=== PATIENT | male | born 1970 | race Caucasian/White ===

== ENCOUNTER 2023-05-28 17:02 | Emergency (ER) | payer OTHER, SELFPAY ==
[2023-05-28 17:09] VITALS: BP 162/90; PULSE 67; RESP 16; TEMP 36.4; O2SAT 100; BMI 28.1
--- NOTE | 2023-05-28 17:20 | XR_ITS ---
Patient: MATTEO PERRY Facility:?[facility] Patient ID:?[id number] Site Patient ID:?[id number] Site :?[id number] Study:?XRay-Hip Left -05/28/2023 5:36:19 PM Ordering Physician:?DR. ALVAREZ Final Report: Indication: Fall. Technique: Pelvis and left hip 3 views. Comparison: None. Findings: Bones: Alignment is normal. No fractures or bone lesions. Joint spaces: Joint spaces are preserved. No degenerative changes. Soft tissues: Unremarkable. Impression: No findings to explain pain. Dictated by Nicholas Rendon MD @ 05/28/2023 6:00:36 PM Signed by:?Nicholas Rendon MD @05/28/2023 6:00:36 PM (Electronic Signature)
--- NOTE | 2023-05-28 17:44 | ED_ITS ---
HPI - General Adult General Chief complaint: Extremity Pain/Injury, Lower Stated complaint: Fell, cannot walk on left leg Time Seen by Provider: 05/28/23 17:04 Source: patient Mode of arrival: other (Crutches) Limitations: no limitations History of Present Illness HPI narrative: 52-year-old male coming in today complaining of left-sided hip pain. Patient states that he was on a mounting block to get on a horse when the horse moved away patient fell onto his left hip to the ground. Did not hit his head or lose consciousness. Patient has been using crutches since this occurred as he is having a hard time walking. He states the pain is located on the lateral he left hip radiates a little bit down into the leg and radiates medially. Nothing seems to make it better or worse. He denies any back pain. No loss of bowel or bladder function since this occurred. Related Data Home Medications Medication Instructions Recorded Confirmed aspirin 81 mg tablet,delayed 81 mg PO QDAY 03/04/22 03/04/22 release (Adult Low Dose Aspirin) atorvastatin 40 mg tablet 40 mg PO .Bedtime 03/04/22 03/04/22 fluoxetine 40 mg capsule 40 mg PO DAILY 03/04/22 03/04/22 lisinopril 10 mg tablet 10 mg PO DAILY 03/04/22 05/28/23 ticagrelor 90 mg tablet 90 mg PO BID 03/04/22 03/04/22 aspirin 81 mg chewable tablet 1 tab PO DAILY 05/28/23 05/28/23 rosuvastatin 40 mg tablet 40 mg PO DAILY 05/28/23 05/28/23 Allergies Allergy/AdvReac Type Severity Reaction Status Date / Time No Known Allergies Allergy Unknown Verified 03/03/22 13:56 Review of Systems Status of ROS: Reports: 10 or more systems reviewed and unremarkable except as noted in History and below [facility] Social History Smoking Status: Former smoker Exam Narrative: Exam Narrative: Well-nourished well-developed patient in no acute distress. Alert and oriented x3. Answers questions appropriately. Mood and affect are appropriate. Thoughts are goal oriented and rational. No tangential or magical thinking noted. Patient speaks in full sentences without needing to catch his breath. GCS is 15. He is breathing and speaking without difficulty. There is no obvious bleeding. HEENT: Normocephalic atraumatic. Pupils are equally round reactive to light. Extraocular muscles are intact. Conjunctivae are moist without any icterus noted. Moist mucous membranes. No trauma to the inside of the mouth. Cardiovascular: Heart is regular rate and rhythm S1 and S2 are present without any murmurs. Lungs: Clear to auscultation bilaterally no wheezes rhonchi or rales are appreciated. Patient takes deep breaths without any discomfort. There is no discomfort to palpation over the chest wall. Abdomen: Soft and nontender nondistended with normal bowel sounds. No guarding or rebound. No masses or organomegaly appreciated. Extremities: Bilateral lower extremities are without edema. Normal DP and PT pulses. There is no bruising or abrasions noted of the extremity. He has gen eralized discomfort with palpation anywhere over the left hip but there is no bony tenderness with palpation of the femur or the greater trochanter. He has no bony tenderness with manipulation of the pelvis. He can lift the leg off the bed. The leg is not shortened or internally rotated. Skin: Well perfused without any obvious rashes. Back: Normal appearance. No tenderness to palpation of the cervical, thoracic or lumbar spine. He has full range of motion at the neck with flexion, extension sideways bending and rotation without pain. Const: Vital Signs, click to edit/add: Vital Signs - 24 hr 05/28/23 17:09 Temperature 97.6 F Pulse Rate [Pulse Oximeter] 67 Respiratory Rate 16 Blood Pressure [Ri ght Upper Arm] 162/90 H Pulse Oximetry 100 Oxygen Delivery Me thod Room Air Course Course ED Course: X-rays of the hip and pelvis were done. X-rays, read by me, were unremarkable. Vital Signs Vital signs: Initial Vital Signs Temperature 97.6 F 05/28/23 17:09 Temperature Source Temporal Artery Scan 05/28/23 17:09 Pulse Rate 67 05/28/23 17:09 Respiratory Rate 16 05/28/23 17:09 Blood Pressure 162/90 H 05/28/23 17:09 Blood Pressure Mean 114 H 05/28/23 17:09 Blood Pressure Position Standing 05/28/23 17:09 Pulse Oximetry 100 05/28/23 17:09 Oxygen Delivery Method Room Air 05/28/23 17:09 Vital Signs Temperature 97.6 F 05/28/23 17:09 Pulse Rate 67 05/28/23 17:09 Respiratory Rate 16 05/28/23 17:09 Blood Pressure 162/90 H 05/28/23 17:09 Pulse Oximetry 100 05/28/23 17:09 Oxygen Delivery Method Room Air 05/28/23 17:09 Temperature 97.6 F 05/28/23 17:09 Pulse Rate 67 05/28/23 17:09 Respiratory Rate 16 05/28/23 17:09 Blood Pressure 162/90 H 05/28/23 17:09 Pulse Oximetry 100 05/28/23 17:09 Oxygen Delivery Method Room Air 05/28/23 17:09 Medical Decision Making Imaging Data XR hip/pelvis: Attestation: I have reviewed the pertinent imaging results. Radiologist's impression: Pelvis and left hip 3 views. Comparison: None. Findings: Bones: Alignment is normal. No fractures or bone lesions. Joint spaces: Joint spaces are preserved. No degenerative changes. Soft tissues: Unremarkable. Impression: No findings to explain pain. Discharge Plan Discharge Clinical Impression: Contusion of hip, left Patient Disposition: Home, Self-Care Condition: Stable Additional Instructions: Okay to ice sore areas today and in the next few days. Do not ice for more than 20 minutes at a time do not apply ice directly to skin. Okay to use ibuprofen or Tylenol as needed for discomfort. If you are not improving over the next several days, follow-up with your primary care provider. Prescriptions: No Action ticagrelor 90 mg tablet 90 mg PO BID aspirin [Adult Low Dose Aspirin] 81 mg tablet,delayed release (DR/EC) 81 mg PO QDAY atorvastatin 40 mg tablet 40 mg PO .Bedtime fluoxetine 40 mg capsule 40 mg PO DAILY lisinopril 10 mg tablet 10 mg PO DAILY aspirin 81 mg tablet,chewable 1 tab PO DAILY rosuvastatin 40 mg tablet 40 mg PO DAILY Follow Up/Referrals: Sarah Beth Joyner PA [Referring] - Stand Alone Forms: [facility] Info Instructions
== END 2023-05-28 18:26 | disposition home or self-care (01) ==
PROVIDERS: Emergency Provider Family Medicine; PCP Student in an Organized Health Care Education/Training Program
DX: S70.02XA Contusion of left hip, initial encounter (principal); V80.010A Animal-rider injured by fall from or being thrown from horse in noncollision accident, initial encounter
CPT/HCPCS: 73502; 99283; 99284

== ENCOUNTER 2023-06-12 09:37 | Outpatient (CLI) | payer OTHER, SELFPAY ==
--- NOTE | 2023-06-12 10:00 | CT_ITS ---
Patient: MATTEO PERRY Facility:?[facility] Patient ID:?[id number] Site Patient ID:?[id number] Site :?[id number] Study:?CT-Hip Left WITHOUT-06/12/2023 11:21:28 AM Ordering Physician:DENA Final Report: INDICATION: Contusion left hip with possible fracture COMPARISON: Radiographs 06/07/2023 TECHNIQUE: CT of the left hip without IV contrast. Multiplanar reformats are included. Contrast: None FINDINGS: Nondisplaced fracture of the left superior pubic ramus at its junction with the acetabulum. No articular surface disruption. No other fracture. Hip joint space is normal. No focal bone lesions. Limited exam of the included pelvic viscera shows colonic diverticulosis without diverticulitis. IMPRESSION: Nondisplaced left superior pubic ramus/periacetabular fracture. No articular surface involvement. Please note that all CT scans at this facility use dose modulation, iterative reconstruction, and/or weight-based dosing when appropriate to reduce radiation dose to as low as reasonably achievable. Dictated by Aparna Oreilly MD @ 06/12/2023 11:28:30 AM Signed by:?Aparna Oreilly MD @06/12/2023 11:28:30 AM (Electronic Signature)
== END 2023-06-12 09:38 | disposition home or self-care (01) ==
PROVIDERS: PCP Student in an Organized Health Care Education/Training Program; Visit Provider Physician Assistant
DX: M25.552 Pain in left hip (principal); S32.512A Fracture of superior rim of left pubis, initial encounter for closed fracture; S70.02XA Contusion of left hip, initial encounter
CPT/HCPCS: 73700

== ENCOUNTER 2023-10-25 11:45 | Outpatient (RCR) | payer OTHER, SELFPAY | END 2024-01-29 09:56 | disposition home or self-care (01) | PROVIDERS: PCP Student in an Organized Health Care Education/Training Program; Visit Provider Physician Assistant | DX: S32.512D Fracture of superior rim of left pubis, subsequent encounter for fracture with routine healing (principal); M70.62 Trochanteric bursitis, left hip; Z51.89 Encounter for other specified aftercare | CPT/HCPCS: 97110; 97112; 97140; 97161 ==

== ENCOUNTER 2024-08-22 07:35 | Outpatient (CLI) | payer OTHER, SELFPAY | END 2024-08-22 07:36 | disposition home or self-care (01) | LOC: NFLDREF 08-24 03:57 | PROVIDERS: PCP Internal Medicine; Referring Provider Internal Medicine; Visit Provider Internal Medicine | DX: E78.2 Mixed hyperlipidemia (principal); R53.83 Other fatigue; R79.89 Other specified abnormal findings of blood chemistry | CPT/HCPCS: 80053; 80061 ==

== ENCOUNTER 2024-09-16 09:21 | Outpatient (CLI) | payer OTHER, SELFPAY ==
--- NOTE | 2024-09-16 09:43 | P.ANES_ITS ---
Anesthesia Charges Start Date/Time Anesthesia Start Date: 09/16/24 Anesthesia Start Time: 10:00 Stop Date/Time Anesthesia Stop Date: 09/16/24 Anesthesia Stop Time: 10:23 Coding CPT Codes CPT Codes: ANES LWR INTST NDSC NOS - 30298 ([id number]) P3 - PATIENT W/SEVERE SYS DISEASE, QX - PRICER BAGGER SVC W/ MD MED DIRECTION, QK - FRAME OPERATOR 2-4 CNCRNT ANES PROC
--- NOTE | 2024-09-16 09:43 | W.ANESCHARGE ---
Anesthesia Charges Start Date/Time Anesthesia Start Date: 09/16/24 Anesthesia Start Time: 10:00 Stop Date/Time Anesthesia Stop Date: 09/16/24 Anesthesia Stop Time: 10:23 Coding CPT Codes CPT Codes: ANES LWR INTST NDSC NOS - 88682 ([id number]) P3 - PATIENT W/SEVERE SYS DISEASE, QX - SECURITIES COMPLIANCE EXAMINER SVC W/ MD MED DIRECTION, QK - SOLUTION SPECIALIST 2-4 CNCRNT ANES PROC
--- NOTE | 2024-09-16 10:28 | P.ANES_ITS ---
Anesthesia Charges Start Date/Time Anesthesia Start Date: 09/16/24 Anesthesia Start Time: 10:00 Stop Date/Time Anesthesia Stop Date: 09/16/24 Anesthesia Stop Time: 10:23 Coding CPT Codes CPT Codes: ANES LWR INTST NDSC NOS - 91387 ([id number]) QK - BEATER TENDER 2-4 CNCRNT ANES PROC, QX - WHITE SPOOLER SVC W/ MED DIRECTION, P3 - PATIENT W/SEVERE SYS DISEASE
--- NOTE | 2024-09-16 10:28 | W.ANESCHARGE ---
Anesthesia Charges Start Date/Time Anesthesia Start Date: 09/16/24 Anesthesia Start Time: 10:00 Stop Date/Time Anesthesia Stop Date: 09/16/24 Anesthesia Stop Time: 10:23 Coding CPT Codes CPT Codes: ANES LWR INTST NDSC NOS - 32448 ([id number]) QK - HEALTH DATA ANALYST 2-4 CNCRNT ANES PROC, QX - FISH BIN TENDER SVC W/ MED DIRECTION, P3 - PATIENT W/SEVERE SYS DISEASE
--- OUTSIDE RECORDS SUMMARY | 2024-09-17 02:15 | XMS_ITS | Clinical Summary ---
Author Organization [facility] Address [address] , [address] [place] [address] Phone Care Team Providers Care Tax Manager Public Name Role Phone [facility] Unavailable Unava ilable Conditions or Problems Problem Name Problem Code Onset Date Status Entry Date Provider Comment Standard Description Annotate Muscle cramps 64714620 (SNOMED CT) Active Al Pradhan MD Cramp Tremor [id number] (SNOMED CT) Active Al Pradhan MD Tremor Medications Medication Instructions Start Date Stop Date Generic Name [facility] Provider BRILINTA 90 MG TABS ticagrelor [id number] Al Pradhan MD SERTRALINE HCL 50 MG TABS sertraline [id number] Al Pradhan MD LISINOPRIL 10 MG TABS lisinopril [id number] Al Pradhan MD aspirin 81 mg tablet,chewable aspirin [id number] Al Pradhan MD ATORVASTATIN CALCIUM 40 MG TABS atorvastatin [id number] Al Pradhan MD Medications Administered No information available. Allergies, Adverse Reactions, Alerts Observed no known allergies at Results Date Name Value Unit Range Flag Description Internal Other: Observation data from Authorization.pdf HIECONSENT Y Consent To Release information to the [employer] ([employer])) Lab Report: 01/04/21 - CA 9.2 mg/dL Calcium [Mass/volume] in Serum or Plasma ABSOLUTE BAS completed 10*3/uL Basoph ils [#/volume] in Blood CO2 TOTAL 25 mmol/L carbon diox clarisa, serum, total GLUCOSE SER 88 mg/dL Glucose [Mass/volume] in Serum or Plasma MPV 10.0 fL Platelet mean volume [Entitic volume] in Blood by Sally BUN/CREAT 14 Urea nitrogen/Creatinine [Mass Ratio] in Serum or Plasma MCH 33.6 pg MCH [Entitic mass] by Automated count RDW 13.0 % Erythrocyte distribution width [Ratio] by Automated count MCHC 34.2 % MCHC [Mass/vo lume] by Automated count MCV 98 fL MCV [Entitic volume] by Automated count ANION GAP 10 Anion gap 4 in Serum or Plasma SODIUM 135 mmol/L Sodium [Moles/volume] in Serum or Plasma WBC 6.4 10*3/mm3 Leukocytes [#/volume] in Blood by Automated count RBC 4.14 10*6/mm3 Erythrocytes [#/volume] in Blood by Automated count PLATELETS 208 10*3/mm3 Platelets [#/volume] in Blood by Automated count HGB 13.9 g/dL Hemoglobin [Mass/volume] in Blood HCT 40.7 % Hematocrit [V olume Fraction] of Blood by Automated count PTT PATIENT 118 s PTT patie nt POTASSIUM 4.8 mmol/L Potassium [Moles/volume] in Serum or Plasma CREATININE 0.97 mg/dL Creatinine [Mass/volume] in Serum or Plasma CHLORIDE 100 mmol/L Chloride [Moles/volume] in Serum or Plasma BUN 14 mg/dL Urea nitrogen [Mass/volume] in Serum or Plasma Office Visit: Office Visit t remors in both hands, family hx of parkinson no MEDS REVIEW Done Documenta tion of current medications (procedure) SMOK STATUS never 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 Plan of Care Type Date Detail Pending order We will contact you with test results Pending order T4 Free Direct Pending order TSH Pending order CK (Creatine Kin ase) Total Pending order T4 Free Direct Pending order TSH Pending order CK (Creatine Kin ase) Total Procedures Code Procedure Name Date Entry Date [id number] Documentation of current medicatio ns ORDERS We will contact you with test results 04/24/12 Vital Signs Date Name Value Unit Description BMI (Body Mass Index) 25.18 kg/m2 Bod y Mass Index (Ratio) Height 69.02 [in_us] height E&M Weight Measured 77.27 kg weight in kilograms E&M Weight Measured 170 [lb_av] weight E& M Weight Measured 170 [lb_av] weight E& M Body Temperature 36.44 [degF] temperat ure E&M BP Diastolic 87 mm[Hg] blood pressu re, diastolic BP Systolic 142 mm[Hg] blood pressur e, systolic Heart Rate 56 /min pulse rate Respiratory Rate 16 /min respirat ory rate E&M Immunizations No information available. Advance Directives No information available.
--- OUTSIDE RECORDS SUMMARY | 2024-09-17 02:20 | XMS_ITS | Clinical Summary ---
Author Organization [facility] Address [address] [place] [id number] Care Team Providers Care Binding Cutter Name Role Phone Deb Graham MD Primary Care Prov ider Allergies No known active allergies Medications nitroglycerin (Nitrostat) 0.4 mg sublingual tabletIndications: NSTEMI (non-ST elevated myocardial infarction) (HC) Place 1 Tablet (0.4 mg) under the tongue every 5 minutes if needed for Chest Pain. 25 Tablet 2 2 Active CPAPIndications:OS A (obstructive sleep apnea) CPAP machine for home use at pressure: 4-15 cmw , Heated humidifier x 1 q 5 yr, Humidifier chamber x 1 q 6 mo, nasal face mask x1 q 3mos, with cushion x 2 q mo, standard tubing x 1 q 3 mo, Headgear x 1 q 6 mo, Filters: Disposable x 2 q mo non-disposable filters x1 q 6mo, Length of Need: 99 months, Frequency of use: Daily 1 Each 2 3 Active icosapent ethyL (VASCEPA) 1 gram capsuleIndications :Coronary artery disease involving [place] coronary artery of [place] heart without angina pectoris,History of non-ST elevation myocardial infarction (NSTEMI),Hyperlipi demia, unspecified hyperlipidemia type Take 2 g by mouth two times daily with meals. 360 Capsule 3 5 Active aspirin chewable 81 mg chewable tabletIndications: NSTEMI (non-ST elevated myocardial infarction) (HC) CHEW AND SWALLOW ONE TABLET BY MOUTH ONCE DAILY WITH A MEAL 90 Tablet 3 5 Active coenzyme q10 100 mg capIndications:His tory of non-ST elevation myocardial infarction (NSTEMI),Mixed hyperlipidemia Take 1 Capsule (100 mg) by mouth once daily. 90 Capsule 3 5 Active lisinopriL 10 mg tabletIndications: HTN (hypertension) Take 1 Tablet (10 mg) by mouth once daily. 90 Tablet 3 5 Active rosuvastatin 40 mg tabletIndications: Mixed hyperlipidemia Take 1 Tablet (40 mg) by mouth once daily. 90 Tablet 3 5 Active escitalopram oxalate 20 mg tabletIndications: Anxiety Take 1 Tablet (20 mg) by mouth once daily in the morning. 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 changing in color and size ) 07/08/2024 Travel from Last 3 Months Immunizations Immunization Administration Dates Next Due COVID-19 vaccine (Moderna 100mcg/0.5mL) PF, MDV 03/10/2021 Influenza, IIV4 04/19/2022, 1,01/24/2020,2016 Influenza, IIV4 (=>6mos) MDV 01/03/2018 Tdap 07/28/2015 Zoster (Shingrix-RZV, recombinant) 01/24/2020, Family History Medical History Relation Name Comments Heart Disease Father started in lat 40's age 67 Dementia Maternal Aunt 1 Dementia Maternal Aunt 2 Dementia Maternal Aunt 3 Dementia Maternal Aunt 4 Dementia Maternal Aunt 5 Diabetes Maternal Uncle Dementia Mother dementia a ge 77 Parkinsonism Mother related to selin ntia Parkinsonism Paternal Uncle Relation Name Status Comments Father Maternal Aunt 1 Maternal Aunt 2 Maternal Aunt 3 Maternal Aunt 4 Maternal Aunt 5 Maternal Uncle Mother Paternal Uncle Social History Tobacco Use Types Packs/Day Years Used Date Smoking Tobacco: Never Smokeless Tobacco: Never Tobacco Cessation:Counseling Given: No Alcohol Use Standard Drinks/Week Comments Yes 2 (1 standard drink = 0.6 oz pur e alcohol) PHQ-2 Answer Date Recorded PHQ-2 TOTAL SCORE 1 02/01/2024 Social Connections Answer Date Recorded Do you often feel lonely or isolated from those around you? 0 02/06/2024 Financial Resource Strain Answer Date R ecorded Difficulty of Paying Living Expenses 3 02/06/2024 Difficulty of Paying Living Expenses Not on file 02/06/2024 Food Insecurity Answer Date Recorded Do you worry your food will run out before you are able to buy more? 1 02/06/2024 Transportation Needs Answer Date Record ed Does lack of transportation keep you from medica l appointments? 1 02/06/2024 Does lack of transportation keep you from work, meetings or getting things that you need? 1 02/06/2024 Housing Stability Answer Date Recorded What is your housing situation today? 1 02/06/2024 Utilities Answer Date Recorded Do you have trouble paying f or utilities (for example, heat, electricity, water, phone)? 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 Not on file Not on file Not on file Obstetrics History Last Filed Vital Signs Vital Sign Reading Time Taken Comments Blood Pressure 138/83 07/08/2024 1:25 PM CDT Pulse 73 07/08/2024 1:25 PM CDT Temperature 36.4 C (97.6 F) 01/05/2021 9:37 AM CDT Respiratory Rate 16 01/05/2021 9:37 AM CDT Oxygen Saturation 99% 07/08/2024 1:25 PM CDT Inhaled Oxygen Concentration - - Weight 92.1 kg (203 lb) 07/08/2024 1:25 PM CDT Height 174.5 cm (5' 8.7) 07/08/2024 1:25 PM CDT Body Mass Index 30.24 07/08/2024 1:25 PM CDT Plan of Treatment Health Maintenance Due Date Last Done Comments Hepatitis B series for 19+ ( 1 of 3 - 19+ 3-dose series) 10/19/1987 Pneumococcal series for age 50+ (1 of 2 - PCV) 10/19/1987 COVID-19 vaccine series ( season) 2023 03/10/2021, 07/28/2020, 06/30/2020 Influenza Vaccine (Season Ended) 2024 04/19/2022, 01/05/2021, 01/24/2020, Additional history exists Depression screening for age 12+ 01/31/2025 02/01/2024, 10/31/2023, 08/29/2023, Additional history exists BMI (ht and wt on same day) for age 18+ 07/08/2025 07/08/2024, 03/28/2024, 01/10/2023, Additional history exists Tetanus booster 07/27/2025 07/28/2015 Colonoscopy through age 75 03/27/202903/27, 03/27/2019, 03/27/2019, Additional history exists Lipids for age 45-75 07/08/2029 07/08/2024, 04/26/2023, 04/19/2022, Additional history exists Tdap Completed 07/28/2015 Zoster (shingles) series for age 50+ Completed 01/24/2020, 12/11/2018 HIV for age 15-65 Completed 04/19/2022 Hepatitis C screening for ag e 18-79 Completed 04/19/2022 Procedures Procedure Name Priority Date/Time Associated Diagnosis Comments BASIC METABOLIC PANEL Routine 07/08/2024 2:10 PM CDT HTN (hypertension) LIPID PANEL Routine 07/08/2024 2:10 PM CDT Mixed hyperlipidemia History of non-ST elevation myocardial infarction (NSTEMI) AST (SGOT) Routine 07/08/2024 2:10 PM CDT Screening for metabolic disorder ALT (SGPT) Routine 07/08/2024 2:10 PM CDT Screening for metabolic disorder PLATELET COUNT Routine 07/08/2024 2:10 PM CDT Screening for metabolic disorder TESTOSTERONE,TOTAL Routine 07/08/2024 2: 10 PM CDT Low energy LC HIV-1/O/2, 4TH GENERATION Routine 04/19/2022 3:20 PM ELECTRICIAN SUPERVISOR Encounter for screening for HIV LC HCV ANTIBODY RFX TO QUANT PCR Routine 04/19/2022 3:20 PM ELECTRICIAN SUPERVISOR Need for hepatitis C screening test COLONOSCOPY SCREENING Routine 03/27/2019 11:14 AM ELECTRICIAN SUPERVISOR Special screening for malignant neoplasms, colon from Last 3 Months or Most Recently Relevant to Health Maintenance Results * PLATELET COUNT (07/08/2024 2:10 PM CDT) Pathologist [facility] PLATELET COUNT 237 140 - 400 Thousand/u L [facility] Blood BLOOD SPECIMEN / Unknown 07/08/2024 2:10 PM CDT 07/08/2024 2:10 PM CDT us Deb Graham MD HEMATOLOGY Fi nal Result [facility] [address] [place] [address], [place] [phone] [facility] [address] [place] [address] * ALT (SGPT) (07/08/2024 2:10 PM CDT) Pathologist [facility] ALT 24 9 - 46 U/L [facility] Blood BLOOD SPECIMEN / Unknown 07/08/2024 2:10 PM CDT 07/08/2024 2:10 PM CDT Deb Graham MD CHEMISTRY Fi nal Result Performing Organization Address City/[facility]/ZIP Co de Phone Number [facility] [address] [address], [place] [phone] [facility] [address] [place] [address] * AST (SGOT) (07/08/2024 2:10 PM CDT) [facility] AST 24 10 - 35 U/L [facility] Blood BLOOD SPECIMEN / Unknown 07/08/2024 2:10 PM CDT 07/08/2024 2:10 PM CDT Deb Graham MD CHEMISTRY Fi nal Result Performing Organization Address [facility] Co de Phone Number [facility] [address] [phone], [facility] [address] [place] [phone] * (ABNORMAL) TESTOSTERONE,TOTAL (07/08/2024 2:10 PM CDT) [facility] TESTOSTERONE, TOTAL, MS 223(L) 250 - 1,100 ng/dL [facility] Comment: Men with clinically significant hypogonadal symptoms and testosterone values repeatedly in the range of the 200-300 ng/dL or less, may benefit from testosterone treatment after adequate risk and benefits counseling. For additional information, please refer to https://education.[employer].CareDox/faq/TotalTestosteroneLCMSMS (This link is being provided for informational/educational purposes only.) (Note) This test was developed and its analytical performance characteristics have been determined by [employer]. It has not been cleared or approved by the FDA. This assay has been validated pursuant to the CLIA regulations and is used for clinical purposes. [facility] [address] [facility] [address] [place] [address] Laura Álvarez MD, PhD Blood BLOOD SPECIMEN / Unknown 07/08/2024 2:10 PM CDT 07/08/2024 2:10 PM CDT Deb Graham MD CHEMISTRY Fi nal Result [facility] [address] [place] [phone], [facility] [address] [place] [address], [address] [place] [address] * (ABNORMAL) LIPID PANEL (07/08/2024 2:10 PM CDT) [facility] CHOLESTEROL, TOTAL 156 <200 mg/dL [facility] HDL CHOLESTEROL 34(L) > OR = 40 mg/dL [facility] TRIGLYCERIDES 448(H) <150 mg/dL [facility] Comment: If a non-fasting specimen was collected, consider repeat triglyceride testing on a fasting specimen if clinically indicated. Ahmet et al. J. of Clin. Lipidol. 2015;9:129-169. LDL-CHOLESTEROL Ques t [facility] Comment: LDL cholesterol not calculated. Triglyceride levels greater than 400 mg/dL invalidate calculated LDL results. Reference range: <100 Desirable range <100 mg/dL for primary prevention; <70 mg/dL for patients with CHD or diabetic patients with > or = 2 CHD risk factors. LDL-C is now calculated using the [place]ixon calculation, which is a validated novel method providing better accuracy than the Friedewald equation in the estimation of LDL-C. Tex SS et al. PRISCILA. 2013;310(19): 1352-8991 (http://education.[employer]/faq/TJW553) CHOL/HDLC RATIO 4.6 <5.0 (calc) [facility] NON HDL CHOLESTEROL 122 <130 mg/dL (calc) [facility] Comment: For patients with diabetes plus 1 major ASCVD risk factor, treating to a non-HDL-C goal of <100 mg/dL (LDL-C of <70 mg/dL) is considered a therapeutic option. Blood BLOOD SPECIMEN / Unknown 07/08/2024 2:10 PM CDT 07/08/2024 2:10 PM CDT Deb Graham MD CHEMISTRY Fi nal Result [facility] [address] [place] [address], [facility] [address] [place] [address] * BASIC METABOLIC PANEL (07/08/2024 2:10 PM CDT) [facility] GLUCOSE 87 65 - 99 mg/dL [facility] Comment: Fasting reference interval UREA NITROGEN (BUN) 21 7 - 25 mg/dL [facility] CREATININE 1.04 0.70 - 1.30 mg/dL [facility] EGFR 85 > OR = 60 mL/min/1. 73m2 [facility] BUN/CREATININE RATIO SEE NOTE: 6 - 22 (calc) [facility] Comment: Not Reported: BUN and Creatinine are within reference range. SODIUM 136 135 - 146 mmol/L [facility] POTASSIUM 4.0 3.5 - 5.3 mmol/L [facility] CHLORIDE 100 98 - 110 mmol/L [facility] CARBON DIOXIDE 26 20 - 32 mmol/L [facility] ELECTROLYTE BALANCE 10 7 - 17 mmol/L (calc) [facility] CALCIUM 9.4 8.6 - 10.3 mg/dL [facility] Blood BLOOD SPECIMEN / Unknown 07/08/2024 2:10 PM CDT 07/08/2024 2:10 PM CDT Deb Graham MD CHEMISTRY Fi nal Result [facility] [address] [place] [address], [place] [phone] [facility] [address] [place] [address] * LC HCV ANTIBODY RFX TO QUANT PCR (04/19/2022 3:20 PM ELECTRICIAN SUPERVISOR) [facility] HCV Ab <0.1 0.0 - 0.9 s/co ratio 04/22/2022 10:06 PM ELECTRICIAN SUPERVISOR [facility] ESOTERIC TESTING ([facility]) Blood BLOOD SPECIMEN / Unknown Venipuncture / Unknown 04/19/2022 3:20 PM ELECTRICIAN SUPERVISOR 04/19/2022 3:22 PM ELECTRICIAN SUPERVISOR [facility] ESOTERIC TESTING (CET) - 04/22/2022 10:06 PM ELECTRICIAN SUPERVISOR Performed at: [address] [place] [id number] Heel Packer: Haile Henning MD, Phone: [phone] Sarah Beth UP LABORATORY Final Resu lt [facility]OTER[facility] (CET) [facility] [place] [address], * LC HIV-1/O/2, 4TH GENERATION (04/19/2022 3:20 PM ELECTRICIAN SUPERVISOR) [facility] HIV Scr 4th Gen Non Reactive Non Reactive 04/23/2022 3:07 AM ELECTRICIAN SUPERVISOR [facility] ESOTERIC TESTING (CET) Comment: HIV Negative HIV-1/HIV-2 antibodies and HIV-1 p24 antigen were NOT detected. There is no laboratory evidence of HIV infection. Blood BLOOD SPECIMEN / Unknown Venipuncture / Unknown 04/19/2022 3:20 PM ELECTRICIAN SUPERVISOR 04/19/2022 3:22 PM ELECTRICIAN SUPERVISOR FOR ESOTERIC TESTING (CET) - 04/23/2022 3:07 AM ELECTRICIAN SUPERVISOR Performed at: 01 - [facility] [address] [place], [place] [id number] Heel Packer: Haile Henning MD, Phone: [phone] Sarah Beth UP LABORATORY Final Resu lt [facility] ESOT[facility]IC TEST[facility] (CET) [facility] [place] [address], * COLONOSCOPY SCREENING (03/27/2019 11:14 AM ELECTRICIAN SUPERVISOR) us Sarah Beth UP GI PROCEDURE ORD Final Res ult from Last 3 Months or Most Recently Relevant to Health Maintenance Insurance MEDICA CHOICE Advance Directives * Full Code (Latest Code Status on File) Date Activated Date Inactivated Comments 01/04/2021 2:39 PM 01/05/2021 2:07 PM Question Answer Comments Code Status Discussion: Not Discussed Care Teams Binding Cutter Relationship Specialty Start Date End Date Deb Graham [place] [address] PCP - General Family Practice 04/26/23
== END 2024-09-16 09:22 | disposition home or self-care (01) ==
LOC: OP CLINIC 09:22
PROVIDERS: PCP Internal Medicine; Visit Provider Internal Medicine
DX: Z12.11 Encounter for screening for malignant neoplasm of colon (principal); D12.2 Benign neoplasm of ascending colon; K64.4 Residual hemorrhoidal skin tags; K64.8 Other hemorrhoids; K57.30 Diverticulosis of large intestine without perforation or abscess without bleeding
CPT/HCPCS: 00811; 00812; 45380; J2704

== ENCOUNTER 2025-01-29 14:42 | Outpatient (CLI) | payer OTHER, SELFPAY | END 2025-01-29 14:43 | disposition home or self-care (01) | PROVIDERS: PCP Internal Medicine; Visit Provider Internal Medicine | DX: D64.9 Anemia, unspecified (principal); R79.89 Other specified abnormal findings of blood chemistry | CPT/HCPCS: 82607; 82728; 82746; 83540; 83550; 84443 ==